=== PATIENT | female | born 1955 | race Caucasian/White ===

== ENCOUNTER → 2019-04-28 | Outpatient (CLI) | payer MEDICARE ==
--- NOTE | 2019-04-28 10:11 | BD ---
EXAMINATION TYPE: Axial Bone Density DATE OF EXAM: 04/28/2019 COMPARISON: NONE CLINICAL HISTORY: Height: 5 FT 4 IN Weight: 177 FRAX RISK QUESTIONS: Alcohol (3 or more units per day): NO Family History (Parent hip fracture): NO Glucocorticoids (More than 3mos): NO (Ex: prednisone, prednisolone, methylprednisolone, dexamethasone, and hydrocortisone). History of Fracture in Adulthood: YES Secondary Osteoporosis: 1. Type 1 Diabetes: NO 2. Hyperthyroidism: NO 3. Menopause before 45: NO 4. Malnutrition: NO 5. Chronic liver disease: NO Rheumatoid Arthritis: NO Current Tobacco Use: YES RISK FACTORS HISTORY OF: Active: YES Postmenopausal woman: AGE 45-46 MEDICATIONS: Additional Medications: LIPITOR, HYDROCHLOROTHIAZIDE, Additional History: PRIMARY LYMPHADEMA EXAM MEASUREMENTS: Bone mineral densitometry was performed using the [employer]. Bone mineral density as measured about the Lumbar spine is: ----- L1-L4(G/cm2): 1.125 T Score Values are as follows: ----- L2: -1.3 ----- L3: -0.2 ----- L4: 0.1 ----- L1-L4: -0.5 Bone mineral density has: INCREASED 2.0 % since study of: 2011 Bone mineral density about the R hip (g/cm2): 0.797 Bone mineral density about the L hip (g/cm2): 0.792 T Score values are as follows: -----R Neck: -1.7 -----L Neck: -1.8 -----R Total: -1.3 -----L Total: -0.9 Bone mineral density has: DECREASED -2.3% since study of: 2011 IMPRESSION: Osteopenia (T Score between -2.5 and -1). There is slightly increased risk of fracture and the patient may be considered for treatment. Re-Screen 2-5 years. NOTE: T-SCORE=SD OF THE YOUNG ADULT MEAN.
--- NOTE | 2019-04-29 13:24 | MM ---
Reason for exam: screening (asymptomatic). Last mammogram was performed 4 years and 2 months ago. History: Patient is postmenopausal and history of other cancer. Physical Findings: A clinical breast exam by your physician is recommended on an annual basis and results should be correlated with mammographic findings. MG Screening Mammo w CAD Bilateral CC and MLO view(s) were taken. Prior study comparison: March 09, 2015, bilateral MG screening mammo w CAD. December 25, 2011, bilateral digital screening mammo w/CAD. There are scattered fibroglandular densities. No significant changes when compared with prior studies. ASSESSMENT: Benign, BI-RAD 2 RECOMMENDATION: Routine screening mammogram of both breasts in 1 year.
== END | disposition home or self-care (01) ==
LOC: RADMAMWWP 08:04
PROVIDERS: ATTEND Family Medicine
DX: Z12.31 Encounter for screening mammogram for malignant neoplasm of breast (principal); M85.80 Other specified disorders of bone density and structure, unspecified site; Z78.0 Asymptomatic menopausal state
CPT/HCPCS: 77067; 77080

== ENCOUNTER 2019-12-18 14:45 | Emergency (ER) | payer MEDICARE ==
--- NOTE | 2019-12-18 15:10 | ED ---
General Adult HPI - General Chief complaint: Shortness of Breath Stated complaint: SOB Time Seen by Provider: 12/18/19 15:10 Source: patient Mode of arrival: wheelchair Limitations: no limitations - History of Present Illness Initial comments: Patient presents the ED complaining of having intermittent dyspnea and wheezing over the past 2 days. Patient also states that she has felt anxious while dyspneic over the past 2 days. Patient also admits to having diffuse chest tightness. Patient has a 20+ year smoking history. Patient denies trauma or in jury, fever or chills, headache, focal neuro deficit, neck/arm/jaw/back pain, pleuritic pain, leg or calf swelling or pain, cough or cold symptoms, palpitations, dizziness, nausea/vomiting/diaphoresis, abdominal pain, decreased urine output, or any other symptoms or complaints. - Related Data Previous Rx's Medication Instructions Recorded Albuterol Sulfate [Proair Hfa] 2 puff INHALATION Q4H PRN #1 12/18/19 inhaler predniSONE 50 mg PO DAILY 5 Days #5 tab 12/18/19 Allergies Allergy/AdvReac Type Severity Reaction Status Date / Time Sulfa (Sulfonamide Allergy Unknown Verified 12/18/19 15:03 Antibiotics) Review of Systems ROS Statement: Those systems with pertinent positive or pertinent negative responses have been documented in the HPI. ROS Other: All systems not noted in ROS Statement are negative. Past Medical History Past Medical History: Hyperlipidemia, Hypertension Additional Past Medical History / Comment(s): lymphedema History of Any Multi-Drug Resistant Organisms: None Reported Past Surgical History: Section Past Psychological History: No Psychological Hx Reported Smoking Status: Current every day smoker Past Alcohol Use History: None Reported Past Drug Use History: None Reported General Exam Limitations: no limitations General appearance: alert, in no apparent distress Head exam: Present: atraumatic, normocephalic Eye exam: Present: normal appearance, EOMI ENT exam: Present: normal oropharynx, mucous membranes moist Neck exam: Present: other (Trachea is in midline) Respiratory exam: Present: other (Mild bilateral inspiratory and expiratory wheezes). Absent: respiratory distress, rales, rhonchi, stridor, chest wall tenderness Cardiovascular Exam: Present: regular rate, normal rhythm, normal heart sounds, other (Normal radial pulses bilaterally) GI/Abdominal exam: Present: soft. Absent: distended, tenderness, guarding Extremities exam: Present: other (1+ bilateral lower extremity edema; negative Homans sign bilaterally). Absent: tenderness, calf tenderness Neurological exam: Present: alert, oriented X3. Absent: motor sensory deficit Psychiatric exam: Present: normal affect, normal mood Skin exam: Present: warm, dry, intact, normal color Course Vital Signs 12/18/19 12/18/19 12/18/19 14:58 15:39 15:45 Temperature 98.6 F Pulse Rate 84 68 71 Respiratory 16 Rate Blood Pressure 171/90 O2 Sat by Pulse 97 Oximetry 12/18/19 15:51 Temperature Pulse Rate 77 Respiratory 20 Rate Blood Pressure 162/87 O2 Sat by Pulse 98 Oximetry - Reevaluation(s) Reevaluation #1: 12/18/19 17:09 Patient states that her dyspnea and chest tightness have improved with the DuoNeb treatment that she was given in the ED, and she denies development of any new symptoms while in the ED. Patient remains alert and breathing comfortably. Patient's wheezing has now resolved on examination. Patient is aware of her test results, and she feels comfortable going home at this time. Patient was counseled about COPD/wheezing/dyspnea, and she was clearly explained return and follow-up instructions. Patient was instructed to follow up closely with her primary care provider. Patient feels comfortable with this plan. EKG Findings - EKG Comments: EKG Findings:: Normal sinus rhythm, ventricular rate of 81 bpm, occasional PVCs, normal MN and QRS intervals, normal QT interval, normal axis, no ST or T-wave abnormality Medical Decision Making - Medical Decision Making I suspect that the patient's dyspnea is likely secondary to COPD given her long history of tobacco abuse and wheezing noted on examination. Patient's symptoms and wheezing have improved with the DuoNeb treatment in the ED. Patient's chest x-ray shows findings of COPD, but is otherwise fairly unremarkable. Patient's BNP and troponin are within normal limits. Patient is afebrile and without leukocytosis. Will discharge patient home at this time with prescriptions for an albuterol inhaler, as well as a short course of oral prednisone. - Lab Data Result diagrams: 12/18/19 15:26 12/18/19 15:26 Lab Results 12/18/19 12/18/19 12/18/19 Range/Units 15:26 15:26 15:26 WBC 5.7 (3.8-10.6) k/uL RBC 4.93 (3.80-5.40) m/uL Hgb 14.9 (11.4-16.0) gm/dL Hct 45.3 (34.0-46.0) % MCV 91.7 (80.0-100.0) fL MCH 30.3 (25.0-35.0) pg MCHC 33.0 (31.0-37.0) g/dL RDW 12.7 (11.5-15.5) % Plt Count 183 (150-450) k/uL Neutrophils % 59 % Lymphocytes % 27 % Monocytes % 7 % Eosinophils % 5 % Basophils % 1 % Neutrophils # 3.3 (1.3-7.7) k/uL Lymphocytes # 1.5 (1.0-4.8) k/uL Monocytes # 0.4 (0-1.0) k/uL Eosinophils # 0.3 (0-0.7) k/uL Basophils # 0.1 (0-0.2) k/uL PT 9.9 (9.0-12.0) sec INR 0.9 (<1.2) APTT 23.8 (22.0-30.0) sec Sodium 142 (137-145) mmol/L Potassium 4.3 (3.5-5.1) mmol/L Chloride 108 H (98-107) mmol/L Carbon Dioxide 29 (22-30) mmol/L Anion Gap 5 mmol/L BUN 16 (7-17) mg/dL Creatinine 1.13 H (0.52-1.04) mg/dL Est GFR (CKD-EPI)AfAm 59 (>60 ml/min/1.73 sqM) Est GFR (CKD-EPI)NonAf 51 (>60 ml/min/1.73 sqM) Glucose 84 (74-99) mg/dL Calcium 9.3 (8.4-10.2) mg/dL Total Bilirubin 0.3 (0.2-1.3) mg/dL AST 28 (14-36) U/L ALT 20 (4-34) U/L Alkaline Phosphatase 73 (38-126) U/L Troponin I (0.000-0.034) ng/mL NT-Pro-B Natriuret Pep pg/mL Total Protein 6.2 L (6.3-8.2) g/dL Albumin 4.0 (3.5-5.0) g/dL 12/18/19 12/18/19 Range/Units 15:26 15:26 WBC (3.8-10.6) k/uL RBC (3.80-5.40) m/uL Hgb (11.4-16.0) gm/dL Hct (34.0-46.0) % MCV (80.0-100.0) fL MCH (25.0-35.0) pg MCHC (31.0-37.0) g/dL RDW (11.5-15.5) % Plt Count (150-450) k/uL Neutrophils % % Lymphocytes % % Monocytes % % Eosinophils % % Basophils % % Neutrophils # (1.3-7.7) k/uL Lymphocytes # (1.0-4.8) k/uL Monocytes # (0-1.0) k/uL Eosinophils # (0-0.7) k/uL Basophils # (0-0.2) k/uL PT (9.0-12.0) sec INR (<1.2) APTT (22.0-30.0) sec Sodium (137-145) mmol/L Potassium (3.5-5.1) mmol/L Chloride (98-107) mmol/L Carbon Dioxide (22-30) mmol/L Anion Gap mmol/L BUN (7-17) mg/dL Creatinine (0.52-1.04) mg/dL Est GFR (CKD-EPI)AfAm (>60 ml/min/1.73 sqM) Est GFR (CKD-EPI)NonAf (>60 ml/min/1.73 sqM) Glucose (74-99) mg/dL Calcium (8.4-10.2) mg/dL Total Bilirubin (0.2-1.3) mg/dL AST (14-36) U/L ALT (4-34) U/L Alkaline Phosphatase (38-126) U/L Troponin I <0.012 (0.000-0.034) ng/mL NT-Pro-B Natriuret Pep 51 pg/mL Total Protein (6.3-8.2) g/dL Albumin (3.5-5.0) g/dL - Radiology Data Radiology results: image reviewed (Chest x-ray shows left basilar scarring versus atelectasis; COPD changes; otherwise no acute abnormality) Disposition Clinical Impression: Wheezing, Dyspnea Narrative: Suspected COPD exacerbation Disposition: HOME SELF-CARE Condition: Stable Instructions (If sedation given, give patient instructions): COPD (Chronic Obstructive Pulmonary Disease) (ED), Dyspnea (ED), Wheezing (ED) Additional Instructions: Return to the ER immediately should you develop increased shortness of breath, new or worsening pain, a high fever, vomiting, feeling dizzy or faint, or new or worsening symptoms. Follow up closely with your primary care provider. Prescriptions: predniSONE 50 mg PO DAILY 5 Days #5 tab Albuterol Sulfate [Proair Hfa] 2 puff INHALATION Q4H PRN #1 inhaler PRN Reason: Shortness Of Breath Is patient prescribed a controlled substance at d/c from ED?: No Referrals: Eleazar Day DO [Primary Care Provider] - 1-2 days Time of Disposition: 17:15
[2019-12-18] MEDS ORDERED: predniSONE 20 MG TAB PO STA (15:18)
[2019-12-18] MEDS ORDERED: IPRATROPIUM-ALBUTEROL 3 ML NEB INHALATION STA (15:18)
[2019-12-18 16:01] LABS: Basophils # (A) 0.1 k/uL (0-0.2); Basophils % (A) 1 %; Eosinophils # (A) 0.3 k/uL (0-0.7); Eosinophils % (A) 5 %; HCT 45.3 % (34.0-46.0); HGB 14.9 gm/dL (11.4-16.0); Lymphocytes # (A) 1.5 k/uL (1.0-4.8); Lymphocytes % (A) 27 %; MCH 30.3 pg (25.0-35.0); MCV 91.7 fL (80.0-100.0); Monocytes # (A) 0.4 k/uL (0-1.0); Monocytes % (A) 7 %; Neutrophils # (A) 3.3 k/uL (1.3-7.7); Neutrophils % (A) 59 %; Platelet Count 183 k/uL (150-450); RBC 4.93 m/uL (3.80-5.40); RDW 12.7 % (11.5-15.5); WBC 5.7 k/uL (3.8-10.6)
--- NOTE | 2019-12-18 16:08 | XR ---
EXAMINATION TYPE: XR chest 2V DATE OF EXAM: 12/18/2019 COMPARISON: 06/01/2011 HISTORY: Difficulty breathing TECHNIQUE: FINDINGS: Heart is normal. Lungs are clear of infiltrate. There is no heart failure. There is mild pu lmonary hyperinflation. Bony thorax is intact. There are chest leads. IMPRESSION: No active cardiopulmonary disease. No change. There is probably some COPD.
[2019-12-18 16:09] LABS: INR 0.9 (<1.2); Partial Thromboplastin Time 23.8 sec (22.0-30.0); Prothrombin Time 9.9 sec (9.0-12.0)
[2019-12-18 16:10] LABS: Calcium 9.3 mg/dL (8.4-10.2); Potassium 4.3 mmol/L (3.5-5.1); Total Bilirubin 0.3 mg/dL (0.2-1.3); Total Protein 6.2 g/dL (6.3-8.2)
[2019-12-18 17:27] VITALS: PULSE 72
[2019-12-18 17:31] VITALS: BP 165/82; RESP 18; TEMP 98
== END 2019-12-18 17:29 | disposition home or self-care (01) ==
LOC: EC 14:45
DX: R06.00 Dyspnea, unspecified (principal); R06.2 Wheezing; R07.89 Other chest pain; Z88.2 Allergy status to sulfonamides; F17.200 Nicotine dependence, unspecified, uncomplicated
CPT/HCPCS: 36415; 94640; 93005; 83880; 80053; 84484; 85025; 85610; 85730; 71046; 99285; J7512

== ENCOUNTER 2020-01-27 07:16 | Emergency (ER) | payer MEDICARE ==
[2020-01-27 07:24] VITALS: RESP 18; TEMP 97.6
[2020-01-27] MEDS ORDERED: SODIUM CHLORIDE 0.9% 1,000 ML IV STA (07:40)
[2020-01-27] MEDS ORDERED: KETOROLAC 15 MG/ML 1 ML VIAL IVP STA (07:40)
[2020-01-27] MEDS ORDERED: ONDANSETRON 4 MG/2 ML VIAL IVP STA (07:40)
--- NOTE | 2020-01-27 07:43 | ED ---
General Adult HPI - General Chief complaint: Back Pain/Injury Stated complaint: Back pain Time Seen by Provider: 01/27/20 07:30 Source: patient, RN notes reviewed Mode of arrival: ambulatory Limitations: no limitations - History of Present Illness Initial comments: This is a 64-year-old female presents emergency Department with chief complaint of right flank pain. Patient states started a few days ago. Patient states she was unable to get into her primary physician suture went to urgent care yesterday. Patient states that they didn't x-ray which it was inconclusive for any results. Patient states she was unable to provide a urine esterase that she had no urinalysis. Patient was advised to take Tylenol Motrin states has not been helping states that she's been on all night last 2 nights. Patient states that nothing makes the pain feel better or worse. She's had some nausea with no vomiting no diarrhea or constipation. No prior cholecystomy her appendectomy. Patient has no chest pain or shortness breath she states she feels more pain in her right flank around her kidney area. Patient did state that she had a kidney stone approximately 10-15 years ago - Related Data Home Medications Medication Instructions Recorded Confirmed Atorvastatin [Lipitor] 10 mg PO HS 12/18/19 12/18/19 Hydrochlorothiazide 12.5 mg PO DAILY 12/18/19 12/18/19 [hydroCHLOROthiazide] Vitamin D3(Unknown Dose) 1 tab PO DAILY 12/18/19 12/18/19 Zinc 50 mg PO DAILY 12/18/19 12/18/19 buPROPion SR [Wellbutrin Sr] 150 mg PO BID 12/18/19 12/18/19 Previous Rx's Medication Instructions Recorded Albuterol Sulfate [Proair Hfa] 2 puff INHALATION Q4H PRN #1 12/18/19 inhaler predniSONE 50 mg PO DAILY 5 Days #5 tab 12/18/19 Ondansetron Odt [Zofran Odt] 4 mg PO Q8HR PRN #10 tab 01/27/20 Allergies Allergy/AdvReac Type Severity Reaction Status Date / Time Sulfa (Sulfonamide Allergy Rash/Hives Verified 01/27/20 07:24 Antibiotics) Review of Systems ROS Statement: Those systems with pertinent positive or pertinent negative responses have been documented in the HPI. ROS Other: All systems not noted in ROS Statement are negative. Past Medical History Past Medical History: Hyperlipidemia, Hypertension Additional Past Medical History / Comment(s): lymphedema History of Any Multi-Drug Resistant Organisms: None Reported Past Surgical History: Section Past Psychological History: No Psychological Hx Reported Smoking Status: Former smoker Past Alcohol Use History: None Reported Past Drug Use History: None Reported General Exam Limitations: no limitations General appearance: alert, in no apparent distress Head exam: Present: atraumatic, normocephalic, normal inspection Eye exam: Present: normal appearance, PERRL, EOMI. Absent: scleral icterus, conjunctival injection, periorbital swelling ENT exam: Present: normal exam, normal oropharynx, mucous membranes moist Neck exam: Present: normal inspection, full ROM. Absent: tenderness, meningismus, lymphadenopathy Respiratory exam: Present: normal lung sounds bilaterally. Absent: respiratory distress, wheezes, rales, rhonchi, stridor Cardiovascular Exam: Present: regular rate, normal rhythm, normal heart sounds. Absent: systolic murmur, diastolic murmur, rubs, gallop, clicks GI/Abdominal exam: Present: soft, tenderness (Mild right-sided), normal bowel sounds. Absent: distended, guarding, rebound, rigid Back exam: Present: full ROM, CVA tenderness (R). Absent: tenderness, CVA tenderness (L), muscle spasm, paraspinal tenderness Neurological exam: Present: alert, oriented X3, CN II-XII intact Skin exam: Present: warm, dry, intact, normal color. Absent: rash Course Vital Signs 01/27/20 07:22 Temperature 97.6 F Pulse Rate 66 Respiratory 18 Rate Blood Pressure 150/74 O2 Sat by Pulse 100 Oximetry Medical Decision Making - Medical Decision Making 64-year-old female presented for flank pain. Labs reviewed no syncope abnormality. Patient did have CT which showed evidence of enlarged gallbladder consider HIDA scan versus ultrasound was completed at this time which shows enlarged gallbladder mildly dilated common bile duct but normal LFTs. Patient will be referred to on-call surgery. Return parameters were discussed. - Lab Data Result diagrams: 01/27/20 07:54 01/27/20 07:54 Lab Results 01/27/20 01/27/20 01/27/20 Range/Units 07:54 07:54 07:54 WBC 6.2 (3.8-10.6) k/uL RBC 4.92 (3.80-5.40) m/uL Hgb 15.0 (11.4-16.0) gm/dL Hct 45.8 (34.0-46.0) % MCV 93.0 (80.0-100.0) fL MCH 30.6 (25.0-35.0) pg MCHC 32.9 (31.0-37.0) g/dL RDW 12.3 (11.5-15.5) % Plt Count 186 (150-450) k/uL Neutrophils % 67 % Lymphocytes % 21 % Monocytes % 7 % Eosinophils % 3 % Basophils % 2 % Neutrophils # 4.2 (1.3-7.7) k/uL Lymphocytes # 1.3 (1.0-4.8) k/uL Monocytes # 0.4 (0-1.0) k/uL Eosinophils # 0.2 (0-0.7) k/uL Basophils # 0.1 (0-0.2) k/uL Sodium 139 (137-145) mmol/L Potassium 3.9 (3.5-5.1) mmol/L Chloride 102 (98-107) mmol/L Carbon Dioxide 35 H (22-30) mmol/L Anion Gap 2 mmol/L BUN 16 (7-17) mg/dL Creatinine 0.73 (0.52-1.04) mg/dL Est GFR (CKD-EPI)AfAm >90 (>60 ml/min/1.73 sqM) Est GFR (CKD-EPI)NonAf 87 (>60 ml/min/1.73 sqM) Glucose 91 (74-99) mg/dL Calcium 9.2 (8.4-10.2) mg/dL Total Bilirubin 0.4 (0.2-1.3) mg/dL AST 25 (14-36) U/L ALT 20 (4-34) U/L Alkaline Phosphatase 75 (38-126) U/L Total Protein 6.4 (6.3-8.2) g/dL Albumin 4.0 (3.5-5.0) g/dL Lipase 123 (23-300) U/L Urine Color Light Yellow Urine Appearance Clear (Clear) Urine pH 5.5 (5.0-8.0) Ur Specific [place] 1.014 (1.001-1.035) Urine Protein Negative (Negative) Urine Glucose (UA) Negative (Negative) Urine Ketones Negative (Negative) Urine Blood Negative (Negative) Urine Nitrite Negative (Negative) Urine Bilirubin Negative (Negative) Urine Urobilinogen <2.0 (<2.0) mg/dL Ur Leukocyte Esterase Small H (Negative) Urine RBC 1 (0-5) /hpf Urine WBC 2 (0-5) /hpf Ur Squamous Epith Cells 9 H (0-4) /hpf Urine Bacteria Occasional H (None) /hpf Urine Mucus Rare H (None) /hpf Disposition Clinical Impression: Right flank pain, Enlarged gallbladder Disposition: HOME SELF-CARE Condition: Stable Instructions (If sedation given, give patient instructions): Abdominal Pain (ED) Additional Instructions: Please return to the Emergency Department if symptoms worsen or any other concerns. Prescriptions: Ondansetron Odt [Zofran Odt] 4 mg PO Q8HR PRN #10 tab PRN Reason: Nausea Is patient prescribed a controlled substance at d/c from ED?: No Referrals: Eleazar Day DO [Primary Care Provider] - 1-2 days Sawyer Gage MD [Medical Doctor] - 1-2 days Time of Disposition: 09:12
[2020-01-27 08:14] LABS: Basophils # (A) 0.1 k/uL (0-0.2); Basophils % (A) 2 %; Eosinophils # (A) 0.2 k/uL (0-0.7); Eosinophils % (A) 3 %; HCT 45.8 % (34.0-46.0); Lymphocytes # (A) 1.3 k/uL (1.0-4.8); Lymphocytes % (A) 21 %; MCH 30.6 pg (25.0-35.0); MCHC 32.9 g/dL (31.0-37.0); Mean Platelet Volume 7.8; Monocytes # (A) 0.4 k/uL (0-1.0); Monocytes % (A) 7 %; Neutrophils # (A) 4.2 k/uL (1.3-7.7); Neutrophils % (A) 67 %; Platelet Count 186 k/uL (150-450); RBC 4.92 m/uL (3.80-5.40); RDW 12.3 % (11.5-15.5); WBC 6.2 k/uL (3.8-10.6)
--- NOTE | 2020-01-27 08:22 | CT ---
EXAMINATION TYPE: CT abdomen pelvis wo con DATE OF EXAM: 01/27/2020 COMPARISON: None HISTORY: 64-year-old female Abdominal pain CT DLP: 618.3 mGycm. Automated exposure control for dose reduction was used. TECHNIQUE: Contiguous axial scanning of the abdomen and pelvis without IV contrast. Coronal and sagit laurel reconstructions performed. FINDINGS: The heart is normal size without pericardial effusion. Strandy atelectasis in the lower lungs. Tiny c alcified granuloma anterior basilar left lower lobe. Tiny hiatal hernia. Liver mildly enlarged measuring 19.0 cm, probably due to the presence of a Tom's lobe. Gallbladder hydropic at 4.8 cm wide open without any surrounding inflammation. Adrenal glands, kidneys, and pancreas show no gross abnormal mobility by noncontrast CT. A couple calcified granulomas within the spleen. Kidneys show no renal calculi or hydronephrosis. No suspicious calcifications seen along the course o f either ureter. No dilated small bowel, free fluid, free air. No mesenteric or retroperitoneal lymphadenopathy. A few scattered prominent but nonenlarged mesenteric lymph nodes measuring up to 6 mm. Appendix not clearly visualized. No secondary findings of acute appendicitis in the right lower quadr ant. There is mild to moderate stool within the right side of the abdomen. No pericolonic inflammator y change. Bladder is urine distended. Multiple pelvic coni. Uterus anteverted. Both ovaries are visualized. No abnormal fluid collection in the pelvis or pelvic lymphadenopathy. Bones: Mild degenerative change of the hips. Facet arthropathy lower lumbar spine. IMPRESSION: 1. No nephrolithiasis or hydronephrosis seen. 2. Gallbladder hydropic at 4.8 cm wide but without any surrounding inflammation at this time. Findin gs may be secondary to fasting state. If right upper quadrant pain or concern for early acute cholecy stitis, consider ultrasound or HIDA scan.
[2020-01-27 08:25] LABS: Appearance,Urine Clear (Clear); Bacteria,Urine Occasional /hpf; Bilirubin,Urine Negative (Negative); Blood,Urine Negative (Negative); Color,Urine Light Yellow; Glucose,Urine (UA) Negative (Negative); Ketones,Urine Negative (Negative); Leukocyte Esterase,Urine Small (Negative); Mucus,Urine Rare /hpf; Nitrite,Urine Negative (Negative); PH, Urine 5.5 (5.0-8.0); Protein,Urine Negative (Negative); RBC,Urine 1 /hpf (0-5); Specific Gravity,Urine 1.014 (1.001-1.035); Squamous Epithelial Cell,Urine 9 /hpf (0-4); Urobilinogen,Urine <2.0 mg/dL (<2.0); WBC,Urine 2 /hpf (0-5)
[2020-01-27 08:26] LABS: ALT 20 U/L (4-34); AST 25 U/L (14-36); African American GFR (CKD) >90 (>60 ml/min/1.73 sqM); Alkaline Phosphatase 75 U/L (38-126); Anion Gap 2 mmol/L; Blood Urea Nitrogen 16 mg/dL (7-17); Calcium 9.2 mg/dL (8.4-10.2); Carbon Dioxide 35 mmol/L (22-30); Chloride 102 mmol/L (98-107); Glucose 91 mg/dL (74-99); Non-African American GFR(CKD) 87 (>60 ml/min/1.73 sqM); Potassium 3.9 mmol/L (3.5-5.1); Sodium 139 mmol/L (137-145); Total Bilirubin 0.4 mg/dL (0.2-1.3); Total Protein 6.4 g/dL (6.3-8.2)
--- NOTE | 2020-01-27 09:03 | US ---
EXAMINATION TYPE: US gallbladder DATE OF EXAM: 01/27/2020 COMPARISON: NONE CLINICAL HISTORY: 64-year-old female RUQ pain TECHNIQUE: Multiple sonographic images of the right upper quadrant are obtained. FINDINGS: EXAM MEASUREMENTS: Liver Length: 15.6 cm Gallbladder Wall: .2 cm CBD: 6.4 mm Right Kidney: 9.6 x 4.7 x 5.1 cm Pancreas: Suboptimal visualization of the pancreatic tail due to shadowing from bowel gas. Liver: wnl Gallbladder: No stones seen. Remains hydropic measuring at least 4.3 cm wide. No wall thickening or surrounding fluid. Evidence for sonographic Sotelo's sign: No CBD: wnl Right Kidney: wnl IMPRESSION: 1. Bile duct borderline in caliber at 6.4 mm. This can be normal given patient's age. Correlate with alkaline phosphatase and bilirubin levels. 2. Gallbladder remains hydropic at 4.3 cm wide. However, there is no wall thickening, calculi, or dada rounding fluid to suggest acute cholecystitis at this time. This may be secondary to fasting state. I f pain progresses and there remains concern for early acute cholecystitis, consideration can be given to HIDA scan.
[2020-01-27] MEDS ORDERED: ACET/COD 300 MG/30 MG STARTER PACK 6 TAB BTL PO STA (09:13)
[2020-01-27 09:34] VITALS: BP 138/74; PULSE 70
== END 2020-01-27 09:33 | disposition home or self-care (01) ==
LOC: EC 07:16
DX: K82.8 Other specified diseases of gallbladder (principal); E78.5 Hyperlipidemia, unspecified; I10 Essential (primary) hypertension; Z79.899 Other long term (current) drug therapy; Z88.2 Allergy status to sulfonamides; Z87.891 Personal history of nicotine dependence
CPT/HCPCS: 36415; 80053; 83690; 85025; 81001; 76705; 74176; 99284; 96374; 96375; 96361; J2405; J1885

== ENCOUNTER → 2020-03-24 | Outpatient (CLI) | payer MEDICARE | END | disposition home or self-care (01) | LOC: RADNMMAIN 06:59 | PROVIDERS: ATTEND Surgery | DX: Z53.9 Procedure and treatment not carried out, unspecified reason (principal) ==

== ENCOUNTER → 2021-01-26 | Outpatient (CLI) | payer MEDICARE ==
--- NOTE | 2021-01-26 10:34 | NM ---
EXAMINATION TYPE: NM hepatobiliary w EF DATE OF EXAM: 01/26/2021 COMPARISON: Ultrasound 01/27/2020 HISTORY: 65-year-old female R68.89, findings TECHNIQUE: After the intravenous administration of 4.35 mCi Tc 99m Mebrofenin hepatobiliary scintigra phy is performed. Immediate images post injection. FINDINGS: There is satisfactory initial accumulation of tracer by the liver. The gallbladder is visualized wit hin 20 minutes. The small bowel activity is noted within 16 minutes. At one hour 8 ounces of oral e nsure plus is given to mimic CCK and gallbladder ejection fraction is calculated at 93 %. IMPRESSION: 1. No scintigraphic evidence for acute/chronic cholecystitis or biliary dyskinesia. 2. Elevated gallbladder ejection fraction of 93% may be seen with gallbladder hyperkinesis.
== END | disposition home or self-care (01) ==
LOC: RADNMMAIN 07:08
PROVIDERS: ATTEND Family Medicine
DX: R68.89 Other general symptoms and signs (principal)
CPT/HCPCS: 78226; A9537

== ENCOUNTER 2021-03-02 12:21 | Emergency (ER) | payer MEDICARE ==
[2021-03-02 12:59] VITALS: BP 176/72; PULSE 73; RESP 20; TEMP 99
--- NOTE | 2021-03-02 15:31 | ED ---
General Adult HPI - General Chief complaint: Upper Respiratory Infection Stated complaint: covid+/antibodies Time Seen by Provider: 03/02/21 15:00 Source: patient Mode of arrival: ambulatory Limitations: no limitations - History of Present Illness Initial comments: Dictation was produced using [employer] dictation software. please excuse any grammatical, word or spelling errors. Chief Complaint: Patient is 65-year-old female presents emergency department after testing positive at home for coronavirus History of Present Illness: Exceeded 5-year-old female. Her daughter is one of our nurses. Patient has been symptomatic with URI symptoms for the last 3 days. She taken at home covid test which was positive. Her daughter urged patient to come to the emergency room for monoclonal antibodies. Patient states she's been having runny nose, myalgias and weakness. She has had low-grade temperatures. Denies any abdominal pain or diarrhea. Denies any shortness of breath. She does have some mild cough. The ROS documented in this emergency department record has been reviewed and confirmed by me. Those systems with pertinent positive or negative responses have been documented in the HPI. All other systems are other negative and/or noncontributory. PHYSICAL EXAM: General Impression: Alert and oriented x3, not in acute distress HEENT: Normocephalic atraumatic, extra-ocular movements intact, pupils equal and reactive to light bilaterally, mucous membranes moist. Cardiovascular: Heart regular rate and rhythm Chest: Able to complete full sentences, no retractions, no tachypnea Abdomen: abdomen soft, non-tender, non-distended, no organomegaly Musculoskeletal: Pulses present and equal in all extremities, no peripheral edema Motor: no focal deficits noted Neurological: CN II-XII grossly intact, no focal motor or sensory deficits noted Skin: Intact with no visualized rashes Psych: Normal affect and mood ED course: 65-year-old female no significant past medical history presents to the emergency department for monoclonal antibodies. Vital signs are stable. Vital signs upon arrival are within acceptable limits. Patient not hypoxic. Physical examination is benign. Covid test is positive. Patient agreeable for monoclonal antibody infusion. Administer monoclonal antibodies and observed the emergency department after infusion. Patient stable and will be discharged home. - Related Data Home Medications Medication Instructions Recorded Confirmed Atorvastatin [Lipitor] 10 mg PO HS 12/18/19 12/18/19 Hydrochlorothiazide 12.5 mg PO DAILY 12/18/19 12/18/19 [hydroCHLOROthiazide] Vitamin D3(Unknown Dose) 1 tab PO DAILY 12/18/19 12/18/19 Zinc 50 mg PO DAILY 12/18/19 12/18/19 buPROPion SR [Wellbutrin Sr] 150 mg PO BID 12/18/19 12/18/19 Previous Rx's Medication Instructions Recorded Albuterol Sulfate [Proair Hfa] 2 puff INHALATION Q4H PRN #1 12/18/19 inhaler predniSONE 50 mg PO DAILY 5 Days #5 tab 12/18/19 Ondansetron Odt [Zofran Odt] 4 mg PO Q8HR PRN #10 tab 01/27/20 Allergies Allergy/AdvReac Type Severity Reaction Status Date / Time Sulfa (Sulfonamide Allergy Rash/Hives Verified 03/02/21 12:59 Antibiotics) Review of Systems ROS Statement: Those systems with pertinent positive or pertinent negative responses have been documented in the HPI. ROS Other: All systems not noted in ROS Statement are negative. Past Medical History Past Medical History: Hyperlipidemia, Hypertension Additional Past Medical History / Comment(s): lymphedema History of Any Multi-Drug Resistant Organisms: None Reported Past Surgical History: Section Past Psychological History: No Psychological Hx Reported Smoking Status: Former smoker Past Alcohol Use History: None Reported Past Drug Use History: None Reported General Exam Limitations: no limitations Course Vital Signs 03/02/21 12:57 Temperature 99 F Pulse Rate 73 Respiratory 20 Rate Blood Pressure 176/72 O2 Sat by Pulse 97 Oximetry Medical Decision Making - Lab Data Lab Results 03/02/21 Range/Units 13:01 Coronavirus (PCR) Detected A (Not Detectd) Disposition Clinical Impression: Coronavirus infection Disposition: HOME SELF-CARE Condition: Fair Instructions (If sedation given, give patient instructions): Coronavirus Disease 2019 (COVID-19) Is patient prescribed a controlled substance at d/c from ED?: No Referrals: Eleazar Day DO [Primary Care Provider] - 1-2 days
[2021-03-02] MEDS ORDERED: CASIRIVIMAB (REGN10933) (EUA) 600 MG, IMDEVIMAB (REGN10987) (EUA) 600 MG in SODIUM CHLO... IVPB ONE (16:00)
[2021-03-02] MEDS ORDERED: SODIUM CHLORIDE 0.9% 50 ML IVPB ONE (16:30)
--- NOTE | 2021-03-02 16:51 | XR ---
EXAMINATION TYPE: XR chest 1V portable DATE OF EXAM: 03/02/2021 COMPARISON: 12/18/2019 HISTORY: Short of breath cough and congestion TECHNIQUE: Single view FINDINGS: Heart and mediastinum are normal. Lungs are clear. Diaphragm is normal. Bony thorax is inta ct. Pulmonary vascularity is normal. IMPRESSION: Normal chest. No change.
== END 2021-03-02 18:22 | disposition home or self-care (01) ==
LOC: EC 12:21
DX: U07.1 COVID-19 (principal); E78.5 Hyperlipidemia, unspecified; I10 Essential (primary) hypertension; Z88.2 Allergy status to sulfonamides; Z87.891 Personal history of nicotine dependence
CPT/HCPCS: 99285; 87635; 71045; Q0243

== ENCOUNTER → 2021-06-15 | Outpatient (CLI) | payer MEDICARE | END | disposition home or self-care (01) | LOC: RADMAMWWP 15:54 | PROVIDERS: ATTEND Family Medicine | DX: Z53.9 Procedure and treatment not carried out, unspecified reason (principal) ==

== ENCOUNTER 2022-03-01 12:24 | Emergency (ER) | payer MEDICARE ==
[2022-03-01 13:02] VITALS: TEMP 98.6
[2022-03-01] MEDS ORDERED: SODIUM CHLORIDE 0.9% 500 ML 500 ML IV STA (14:37)
[2022-03-01] MEDS ORDERED: KETOROLAC 15 MG/ML 1 ML VIAL IVP STA (14:37)
--- NOTE | 2022-03-01 14:42 | ED ---
General Adult HPI - General Source: patient, RN notes reviewed, old records reviewed Mode of arrival: ambulatory Limitations: no limitations - History of Present Illness -: days(s) (1) Location: right (flank) Radiation: non-radiation Severity scale (1-10): 8 Quality: aching Consistency: constant Associated Symptoms: denies other symptoms <Zoltan Benavides - Last Filed: 03/01/22 17:23> <Azael Montague - Last Filed: 03/01/22 18:02> - General Chief complaint: Back Pain/Injury Stated complaint: Back Pain Time Seen by Provider: 03/01/22 14:30 - History of Present Illness Initial comments: This is a nontoxic 66-year-old female that presents to the emergency room ambulatory with complaints of right flank pain that developed last night. Patient denies doing anything strenuous. She does have nausea, no vomiting or diarrhea. Normal bowel movement today. Denies any fevers. No dysuria or hematuria. She states she is not sure if this is her gallbladder as Dr. Gage had told her in the past she did have an enlarged gallbladder but gave her the option if she wanted it removed. She also has a history of hypertension and chronic bilateral lower extremity lymphedema. (Zoltan Benavides) - Related Data Home Medications Medication Instructions Recorded Confirmed Atorvastatin [Lipitor] 10 mg PO HS 12/18/19 12/18/19 Vitamin D3(Unknown Dose) 1 tab PO DAILY 12/18/19 12/18/19 Zinc 50 mg PO DAILY 12/18/19 12/18/19 buPROPion SR [Wellbutrin Sr] 150 mg PO BID 12/18/19 12/18/19 hydroCHLOROthiazide 12.5 mg PO DAILY 12/18/19 12/18/19 Previous Rx's Medication Instructions Recorded Albuterol Sulfate [Proair Hfa] 2 puff INHALATION Q4H PRN #1 12/18/19 inhaler predniSONE 50 mg PO DAILY 5 Days #5 tab 12/18/19 Ondansetron Odt [Zofran Odt] 4 mg PO Q8HR PRN #10 tab 01/27/20 Cyclobenzaprine [Flexeril] 10 mg PO TID PRN #12 tablet 03/01/22 Allergies Allergy/AdvReac Type Severity Reaction Status Date / Time Sulfa (Sulfonamide Allergy Rash/Hives Verified 03/01/22 13:02 Antibiotics) Review of Systems ROS Other: All systems not noted in ROS Statement are negative. <Zoltan Benavides - Last Filed: 03/01/22 17:23> ROS Other: All systems not noted in ROS Statement are negative. <Azael Montague - Last Filed: 03/01/22 18:02> ROS Statement: Those systems with pertinent positive or pertinent negative responses have been documented in the HPI. Past Medical History Past Medical History: Hyperlipidemia, Hypertension Additional Past Medical History / Comment(s): lymphedema History of Any Multi-Drug Resistant Organisms: None Reported Past Surgical History: Section Past Psychological History: No Psychological Hx Reported Smoking Status: Former smoker Past Alcohol Use History: None Reported Past Drug Use History: None Reported <Zoltan Benavides - Last Filed: 03/01/22 17:23> General Exam Limitations: no limitations General appearance: alert, in no apparent distress Head exam: Present: atraumatic Eye exam: Absent: scleral icterus, conjunctival injection, periorbital swelling Respiratory exam: Present: normal lung sounds bilaterally. Absent: respiratory distress, accessory muscle use Cardiovascular Exam: Present: regular rate GI/Abdominal exam: Present: soft, normal bowel sounds. Absent: distended, tenderness, rigid Extremities exam: Present: full ROM, pedal edema (Lymphedema bilaterally). Absent: calf tenderness Back exam: Present: normal inspection, full ROM, CVA tenderness (R). Absent: tenderness, CVA tenderness (L), paraspinal tenderness, vertebral tenderness, rash noted Neurological exam: Present: alert, oriented X3, normal gait Psychiatric exam: Present: normal affect, normal mood Skin exam: Present: warm, dry, normal color. Absent: cyanosis, diaphoretic, petechiae, pallor <Zoltan Benavides - Last Filed: 03/01/22 17:23> Course Vital Signs 03/01/22 13:00 Temperature 98.6 F Pulse Rate 88 Respiratory 20 Rate Blood Pressure 142/67 O2 Sat by Pulse 97 Oximetry Medical Decision Making - Lab Data Result diagrams: 03/01/22 14:48 03/01/22 14:48 <Zoltan Benavides - Last Filed: 03/01/22 17:23> - Lab Data Result diagrams: 03/01/22 14:48 03/01/22 14:48 - Radiology Data Radiology results: report reviewed (Computed tomography scan of the abdomen pelvis shows no acute abnormality. Large gallbladder could relate to gallbladder dysfunction. No significant change compared to prior exam.) <Azael Montague - Last Filed: 03/01/22 18:02> - Medical Decision Making KUB x-ray interpreted by me shows no evidence of free air or abnormal calcifications. Radiologist interpretation shows nonspecific bowel gas pattern with no evidence of acute process no evidence of renal calculi. Labs show no evidence of leukocytosis. Electrolytes are unremarkable. Urinalysis is clear no evidence of hematuria Patient continues to have pain and therefore CT abdomen was performed. This result is pending therefore case signed out to Dr. Montague for continuation of care. (Zoltan Benavides) I have reviewed all documentation, results, and perform the medical decision making in its entirety which constitutes for than 50% of the visit. Patient reevaluated and is feeling better. Patient is comfortable with discharge home and refuses any further IV medication. Patient is receptive to starter pack to take home. Patient does have discomfort which she states is below the right CVA region. No significant tenderness on exam. Abdomen soft and nontender. Patient updated on results and plan. (Azael Montague) - Lab Data Lab Results 03/01/22 03/01/22 03/01/22 Range/Units 14:48 14:48 14:48 WBC 6.0 (3.8-10.6) k/uL RBC 4.40 (3.80-5.40) m/uL Hgb 13.3 (11.4-16.0) gm/dL Hct 40.1 (34.0-46.0) % MCV 91.0 (80.0-100.0) fL MCH 30.1 (25.0-35.0) pg MCHC 33.1 (31.0-37.0) g/dL RDW 12.6 (11.5-15.5) % Plt Count 166 (150-450) k/uL MPV 8.7 Neutrophils % 86 % Lymphocytes % 5 % Monocytes % 6 % Eosinophils % 2 % Basophils % 1 % Neutrophils # 5.1 (1.3-7.7) k/uL Lymphocytes # 0.3 L (1.0-4.8) k/uL Monocytes # 0.4 (0-1.0) k/uL Eosinophils # 0.1 (0-0.7) k/uL Basophils # 0.0 (0-0.2) k/uL Sodium 138 (137-145) mmol/L Potassium 4.1 (3.5-5.1) mmol/L Chloride 100 (98-107) mmol/L Carbon Dioxide 32 H (22-30) mmol/L Anion Gap 6 mmol/L BUN 23 H (7-17) mg/dL Creatinine 0.70 (0.52-1.04) mg/dL Est GFR (CKD-EPI)AfAm >90 (>60 ml/min/1.73 sqM) Est GFR (CKD-EPI)NonAf 90 (>60 ml/min/1.73 sqM) Glucose 87 (74-99) mg/dL Calcium 8.9 (8.4-10.2) mg/dL Total Bilirubin 0.6 (0.2-1.3) mg/dL AST 35 (14-36) U/L ALT 24 (4-34) U/L Alkaline Phosphatase 86 (38-126) U/L Total Protein 6.6 (6.3-8.2) g/dL Albumin 4.4 (3.5-5.0) g/dL Urine Color Colorless Urine Appearance Clear (Clear) Urine pH 6.5 (5.0-8.0) Ur Specific [place] 1.010 (1.001-1.035) Urine Protein Negative (Negative) Urine Glucose (UA) Negative (Negative) Urine Ketones Negative (Negative) Urine Blood Negative (Negative) Urine Nitrite Negative (Negative) Urine Bilirubin Negative (Negative) Urine Urobilinogen <2.0 (<2.0) mg/dL Ur Leukocyte Esterase Small H (Negative) Urine RBC 1 (0-5) /hpf Urine WBC 2 (0-5) /hpf Ur Squamous Epith Cells 1 (0-4) /hpf - Radiology Data Interpreted by me: KUB does not reveal acute abnormality. (Azael Montague) Disposition <Zoltan Benavides - Last Filed: 03/01/22 17:23> Is patient prescribed a controlled substance at d/c from ED?: No Time of Disposition: 18:01 <Azael Montague - Last Filed: 03/01/22 18:02> Clinical Impression: Back pain Disposition: HOME SELF-CARE Condition: Stable Instructions (If sedation given, give patient instructions): Acute Low Back Pain (ED) Additional Instructions: Prescription sent to pharmacy. Please do follow-up to primary care physician in the next day or 2 for recheck. Return for fever, increased pain, worsening or changing symptoms or any other concerns. Prescriptions: Cyclobenzaprine [Flexeril] 10 mg PO TID PRN #12 tablet PRN Reason: Pain Referrals: Eleaazr Day DO [Primary Care Provider] - 1-2 days
--- NOTE | 2022-03-01 15:06 | XR ---
EXAMINATION TYPE: XR KUB DATE OF EXAM: 03/01/2022 2:59 PM INDICATION: Patient age:Female; 66 years old; Reason for study: right flank pain; COMPARISON: None. TECHNIQUE: One radiographic view of the abdomen was obtained. FINDINGS: The bowel gas pattern is nonspecific without dilated loops of small or large bowel. There i s no evidence for organomegaly or pneumoperitoneum. The osseous structures are intact. No abnormal calcifications are present. Fecal material and gas are demonstrated throughout the colon and rectum. IMPRESSION: Nonspecific bowel gas pattern without radiographic evidence for acute process. No evidence of renal calculus.
[2022-03-01 15:07] LABS: Basophils % (A) 1 %; Eosinophils # (A) 0.1 k/uL (0-0.7); Eosinophils % (A) 2 %; HCT 40.1 % (34.0-46.0); HGB 13.3 gm/dL (11.4-16.0); Lymphocytes # (A) 0.3 k/uL (1.0-4.8); Lymphocytes % (A) 5 %; MCH 30.1 pg (25.0-35.0); MCHC 33.1 g/dL (31.0-37.0); Mean Platelet Volume 8.7; Monocytes # (A) 0.4 k/uL (0-1.0); Monocytes % (A) 6 %; Neutrophils # (A) 5.1 k/uL (1.3-7.7); Neutrophils % (A) 86 %; Platelet Count 166 k/uL (150-450); RDW 12.6 % (11.5-15.5)
[2022-03-01 15:20] LABS: ALT 24 U/L (4-34); AST 35 U/L (14-36); African American GFR (CKD) >90 (>60 ml/min/1.73 sqM); Albumin 4.4 g/dL (3.5-5.0); Alkaline Phosphatase 86 U/L (38-126); Anion Gap 6 mmol/L; Blood Urea Nitrogen 23 mg/dL (7-17); Calcium 8.9 mg/dL (8.4-10.2); Carbon Dioxide 32 mmol/L (22-30); Chloride 100 mmol/L (98-107); Glucose 87 mg/dL (74-99); Non-African American GFR(CKD) 90 (>60 ml/min/1.73 sqM); Potassium 4.1 mmol/L (3.5-5.1); Sodium 138 mmol/L (137-145); Total Bilirubin 0.6 mg/dL (0.2-1.3); Total Protein 6.6 g/dL (6.3-8.2)
[2022-03-01 15:59] LABS: Appearance,Urine Clear (Clear); Bilirubin,Urine Negative (Negative); Blood,Urine Negative (Negative); Color,Urine Colorless; Glucose,Urine (UA) Negative (Negative); Ketones,Urine Negative (Negative); Leukocyte Esterase,Urine Small (Negative); Nitrite,Urine Negative (Negative); PH, Urine 6.5 (5.0-8.0); Protein,Urine Negative (Negative); RBC,Urine 1 /hpf (0-5); Squamous Epithelial Cell,Urine 1 /hpf (0-4); Urobilinogen,Urine <2.0 mg/dL (<2.0); WBC,Urine 2 /hpf (0-5)
[2022-03-01] MEDS ORDERED: ORPHENADRINE 30 MG/ML 2 ML VIAL IM STA (16:33)
--- NOTE | 2022-03-01 17:37 | CT ---
EXAMINATION TYPE: CT abdomen pelvis w con DATE OF EXAM: 03/01/2022 COMPARISON: None HISTORY: right flank pian CT DLP: 859.1 mGycm Automated exposure control for dose reduction was used. CONTRAST: Performed with IV Contrast, patient injected with 100 mL of Isovue 300. Images obtained from the diaphragm to the floor of the pelvis with the IV contrast. The lung bases are clear. No pleural effusion. Heart size is normal. No pericardial effusion. Liver spleen stomach and pancreas appear intact. The bile duct are nondilated. Gallbladder is intact. Gallbladder top normal in size and measures 4.3 cm. There is no adrenal mass. Kidneys show satisfactory contrast opacification. No hydronephrosis. Ureter s are not dilated. No retroperitoneal adenopathy. Bladder distends smoothly. No inguinal hernia. No f ree fluid in the pelvis. No evidence of a pelvic mass. Uterus is anteverted. The lumbar vertebra have normal alignment. There is vacuum disc at L2-3 and L3-4. No compression frac ture. The bony pelvis is intact. The hip joints are intact. Sacroiliac joints appear normal. Appendix is not seen. There is no mesenteric edema. No ascites or free air. No sign of a bowel obstruction. There is small hiatal hernia. There are small calcified splenic granulomata. Delayed images show normal renal excret ion. IMPRESSION: No acute abnormality of the abdomen and pelvis. Large gallbladder could relate to some degree of gallbladder dysfunction. No significant change comp ared to old exam.
[2022-03-01] MEDS ORDERED: ACET/COD 300 MG/30 MG STARTER PACK 6 TAB BTL PO STA (18:02)
[2022-03-01 18:34] VITALS: BP 138/86; PULSE 86; RESP 18
== END 2022-03-01 18:34 | disposition home or self-care (01) ==
LOC: EC 12:24
DX: M54.9 Dorsalgia, unspecified (principal); I10 Essential (primary) hypertension; E78.5 Hyperlipidemia, unspecified; Z87.891 Personal history of nicotine dependence; Z88.2 Allergy status to sulfonamides; Z79.899 Other long term (current) drug therapy
CPT/HCPCS: 36415; 80053; 85025; 81001; 74018; 74177; 99284; 96374; 96361 ×3; 96372; J2360; J1885; Q9967

== ENCOUNTER → 2022-10-09 | Outpatient (CLI) | payer MEDICARE ==
--- NOTE | 2022-10-09 11:35 | US ---
EXAMINATION TYPE: US carotid duplex BILAT DATE OF EXAM: 10/09/2022 COMPARISON: NONE CLINICAL INDICATION: Female, 66 years old with history of R55 SYNCOPE AND COLLAPSE; Prior smoker. Hx hypertension, hyperlipidemia. TECHNIQUE: Carotid duplex ultrasound examination. Indirect Doppler criteria was utilized. 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 Elevated velocities within right distal CCA, r ight ECA, and left ICA. IMPRESSION: No evidence for hemodynamically significant stenosis. Criteria for Assigning % of Stenosis / Diameter reduction (Estimation based on the indirect measurements of the internal carotid artery velocities (ICA PSV). 1. Normal (no stenosis)=ICA PSV < 125 cm/s: ratio < 2.0: ICA EDV<40 cm/s. 2. Less than 50% stenosis=ICA PSV < 125 cm/s: ratio < 2.0: ICA EDV<40 cm/s. 3. 50 to 69% stenosis=ICA PSV of 125 to 230 cm/s: ration 2.0 ? 4.0: ICA EDV 40-100 cm/s. 4. Greater than 70% stenosis to near occlusion= ICA PSV > 230 cm/s: ratio > 4.0: ICA EDV > 100 cm/s. 5. Near occlusion= ICA PSV velocities may be low or undetectable: variable ratio and ICA EDV. 6. Total occlusion=unable to detect flow.
== END | disposition home or self-care (01) ==
LOC: RADUSWWP 10:40
PROVIDERS: ATTEND Family Medicine
DX: R55 Syncope and collapse (principal); E78.5 Hyperlipidemia, unspecified; I10 Essential (primary) hypertension; F17.200 Nicotine dependence, unspecified, uncomplicated
CPT/HCPCS: 93880

== ENCOUNTER → 2023-07-01 | Outpatient (CLI) | payer MEDICARE ==
--- NOTE | 2023-07-01 12:04 | US ---
EXAMINATION TYPE: US kidneys/renal and bladder DATE OF EXAM: 07/01/2023 COMPARISON: US 02/27/2020 CLINICAL INDICATION: Female, 67 years old with history of R109 ABD PAIN; Right flank pain that starte d last night; patient denies any other signs, symptoms, or relevant history EXAM MEASUREMENTS: Right Kidney: 9.6 x 5.3 x 5.5 cm Left Kidney: 9.1 x 6.6 x 4.6 cm Post Void Residual Volume: NA mL Right Kidney: Multiple echogenic areas without shadowing or color twinkle Left Kidney: Multiple echogenic areas without shadowing or color twinkle Bladder: wnl Bilateral Jets seen: Yes Normal Post Void Residual: NA IMPRESSION: 1. There may be tiny renal stones present bilaterally without evidence of obstruction 2. Renal ultrasound is otherwise unremarkable.
[2023-07-01 15:53] LABS: ALT 19 U/L (8-44); AST 24 U/L (13-35); Albumin 4.2 g/dL (3.8-4.9); Alkaline Phosphatase 89 U/L (41-126); BUN/Creat Ratio 37.38 Ratio (12.00-20.00); Blood Urea Nitrogen 29.9 mg/dL (9.0-27.0); Calcium 9.7 mg/dL (8.7-10.3); Carbon Dioxide 30.3 mmol/L (21.6-31.8); Chloride 101 mmol/L (96-109); Globulin 2.1 g/dL (1.6-3.3); Glucose 103 mg/dL (70-110); Potassium 4.3 mmol/L (3.5-5.5); Sodium 140 mmol/L (135-145); Total Bilirubin <0.2 mg/dL (0.3-1.2); Total Protein 6.3 g/dL (6.2-8.2)
[2023-07-01 15:54] LABS: Basophils # (A) 0.11 X 10*3/uL (0.00-0.10); Basophils % (A) 2.1 %; Eosinophils # (A) 0.16 X 10*3/uL (0.04-0.35); Eosinophils % (A) 3.1 %; HCT 41.7 % (37.2-46.3); HGB 13.5 g/dL (12.0-15.0); Lymphocytes # (A) 1.56 X 10*3/uL (0.90-5.00); Lymphocytes % (A) 30.5 %; MCH 29.3 pg (27.0-32.0); MCHC 32.4 g/dL (32.0-37.0); MCV 90.7 FL (80.0-97.0); Mean Platelet Volume 10.9 FL (9.5-12.2); Monocytes # (A) 0.53 X 10*3/uL (0.20-1.00); Monocytes % (A) 10.4 %; NRBC Per 100 WBC 0 X 10*3/uL (0.00-0.01); Neutrophils # (A) 2.74 X 10*3/uL (1.80-7.70); Neutrophils % (A) 53.5 %; Platelet Count 205 X 10*3/uL (140-440); RDW 12.8 % (11.5-14.5); WBC 5.12 X 10*3/uL (4.50-10.00)
== END | disposition home or self-care (01) ==
LOC: RADUSWWP 11:01
PROVIDERS: ATTEND Family Medicine
DX: R10.9 Unspecified abdominal pain (principal)
CPT/HCPCS: 36415; 76770; 80053; 85025